=== PATIENT | male | born 1985 | race African-American/Black ===

== ENCOUNTER 2022-12-23 09:23 | Emergency (ER) | payer MEDICAID ==
[~2022-12-23] VITALS: Ht 188 cm; Wt 105.0 kg
[2022-12-23 09:33] VITALS: BP 123/76
[2022-12-23 10:15] LABS: HEMATOCRIT 39.4 % (42.0-52.0); HEMOGLOBIN 13.5 g/dL (14.0-18.0); MEAN CORPUSCULAR HEMOGLOBIN 32.5 pg (28.0-32.0); MEAN CORPUSCULAR VOLUME 95.1 fL (80.0-94.0); PLATELET 317 x1000/uL (130-400); RED BLOOD CELL COUNT 4.14 mill/uL (4.7-6.1); RED CELL DISTRIBUTION WIDTH 14.2 % (11.6-14.6)
[2022-12-23] MEDS ORDERED: KETOROLAC 60MG/2ML VIAL IM ONE (10:15)
[2022-12-23 10:23] LABS: CHLORIDE 104 mEq/L (98-107)
[2022-12-23 10:32] LABS: CREATINE KINASE 585 IU/L (39-308)
== END 2022-12-23 11:05 | disposition home or self-care (01) ==
LOC: ER 09:23
DX: M62.82 Rhabdomyolysis (principal); F14.10 Cocaine abuse, uncomplicated
CPT/HCPCS: 36415; 80053; 82550; 82962; 85027; 96372; 99283; J1885